=== PATIENT | male | born 1975 | race Caucasian/White ===

== ENCOUNTER → 2019-09-28 09:25 | Outpatient (CLI) | payer OTHER, SELFPAY ==
--- NOTE | ~2019-09-28 | MR_ITS ---
EXAMINATION: MR lumbar spine wo con EXAM DATE: 09/28/2019 10:03 INDICATION: Low back pain, right hip pain. TECHNIQUE: Multi-sequential, multiplanar MR images of the lumbar spine were obtained without contrast . Sagittal T1, T2, T2 fat saturation images. Axial T2 weighted images. Comparison is made to prior examination from 01/25/2016. FINDINGS: There is moderate to severe loss of the L5-S1 disc height, with only minimal endplate degen erative signal change. Prior right hemilaminectomy, discectomy at that level and 3 mm retrolisthesis. The vertebral body and disc heights are otherwise well maintained. The conus medullaris terminates at the T12-L1 level and has normal signal intensity and morphology. There are no suspicious marrow s ignal abnormalities. Paraspinal soft tissue is unremarkable. Level by level evaluation: T12-L1: Disc does not extend beyond the endplate margin. Facet arthropathy: Mild. Neural foraminal stenosis: No stenosis. Central canal stenosis: No stenosis. L1-L2: Disc does not extend beyond the endplate margin. Facet arthropathy: Mild. Neural foraminal stenosis: No stenosis. Central canal stenosis: No stenosis. L2-L3: Disc does not extend beyond the endplate margin. Facet arthropathy: Mild. Neural foraminal stenosis: No stenosis. Central canal stenosis: No stenosis. L3-L4: There is a mild diffuse disc bulge. Facet arthropathy: Mild. Neural foraminal stenosis: No stenosis. Central canal stenosis: No stenosis. L4-L5: There is a mild diffuse disc bulge. Facet arthropathy: Mild to moderate. Neural foraminal stenosis: Mild to moderate left, mild right. Central canal stenosis: Mild. L5-S1: There is a mild to moderate diffuse disc bulge asymmetric to the right with superimposed small right central extrusion narrowing lateral recess. This is causing mass effect on traversing right S1 nerve root. Facet arthropathy: Mild to moderate. Neural foraminal stenosis: Mild bilateral. Central canal stenosis: Mild to moderate, right lateral recess narrowing. Compared to prior exam L5-S1 has lost disc height, and there has been interval right hemilaminectomy and probably discectomy at that level. IMPRESSION: 1. L5-S1 small right central extrusion causing mass effect on S1 nerve root in lateral recess. Reviewed, dictated and finalized at location B. HANDISING COORDINATOR
== END ==
DX: M51.26 Other intervertebral disc displacement, lumbar region (principal)
CPT/HCPCS: 72148

== ENCOUNTER → 2022-05-12 09:12 | Outpatient (CLI) | payer OTHER, SELFPAY ==
--- NOTE | ~2022-05-12 | MR_ITS ---
EXAMINATION: MR shoulder RT wo con DATE: 05/12/2022 10:00 INDICATION: Right shoulder pain TECHNIQUE: Magnetic resonance imaging (MRI) of the right shoulder was performed without intravenous c ontrast. Sequences included axial PD-weighted FS FSE, coronal oblique PD-weighted FS FSE, coronal obl ique T2-weighted FS FSE, sagittal PD-weighted FS FSE, and sagittal T1-weighted SE. COMPARISON: None. FINDINGS: Coracoacromial arch: The acromion undersurface is curved in morphology (type II). The coracoacromial ligament is normal. M oderate acromioclavicular osteoarthritis. Rotator cuff: The supraspinatus, infraspinatus and teres minor tendons are normal. The subscapularis tendon is norm al. Normal rotator cuff muscle bulk and signal. Biceps tendon, glenoid labrum and glenohumeral cartilage: Long head of the biceps tendon is normal. There is a tear of the caudal half of the glenoid labrum wi th a. Tiny para labral cysts along the periphery of the posterior and inferior rims of the glenoid. S mall region of chondral fissuring at the superomedial aspect of the humeral head. There is linear inc reased signal along the bone chondral interface suspicious for associated delaminating tear. Small re gion of partial-thickness chondral fissuring at the anteroinferior glenoid. Fluid: Physiologic amount of fluid in the glenohumeral joint and biceps tendon sheath. There are couple tin y loose osteochondral bodies within a deep subscapular recess of the joint space. No abnormal fluid i n the subacromial/subdeltoid bursa to suggest bursitis. Bones: Bone alignment is normal. No fracture or pathologic marrow replacing process. Mild cystic change at t he greater tuberosity. IMPRESSION: 1. Mild glenohumeral osteoarthritis with tearing of the inferior half the glenoid labrum. 2. Moderate acromioclavicular osteoarthritis. Reviewed, dictated and finalized at location B. IMPRESSION: 1. Mild glenohumeral osteoarthritis with tearing of the inferior half the gleno id labrum. 2. Moderate acromioclavicular osteoarthritis.
== END ==
DX: M19.011 Primary osteoarthritis, right shoulder (principal)
CPT/HCPCS: 73221

== ENCOUNTER 2023-12-25 08:30 | Outpatient (CLI) | payer OTHER, SELFPAY ==
--- NOTE | ~2023-12-25 | MR_ITS ---
EXAMINATION: MR knee LT wo con DATE: 12/25/2023 08:57 INDICATION: Acute left knee pain. TECHNIQUE: Magnetic resonance imaging (MRI) of the left knee was performed without intravenous contra st. Sequences included axial PD-weighted FS FSE, coronal PD-weighted FSE and PD-weighted FS FSE, sagi ttal PD-weighted FSE, and sagittal T2-weighted FS FSE. COMPARISON: Left knee MRI 11/20/16 FINDINGS: Medial compartment: Again seen is a complex tear of medial meniscus. There is full-thickness cartilage loss of femoral co ndyle involving the central articular surface with intra-articular osteophytes nearly filling the car tilage gap. There is cartilage surface irregularity of tibial condyle. Marginal osteophytes are noted . Lateral compartment: Lateral meniscus is normal. The lateral compartment cartilage is normal. There are tiny marginal oste ophytes. Patellofemoral compartment: There is cartilage surface irregularity of the patellar medial and lateral facets. There is partial-t hickness cartilage loss of trochlea, deep at the central and medial trochlea. There is focal full-thi ckness cartilage loss of the central trochlea with intra-articular osteophyte. Ligaments and tendons: There is an intact anterior cruciate ligament reconstruction. Posterior cruciate ligament is normal. There are changes of prior sprains of medial collateral ligament and fibular collateral ligament edgar acterized by thickening and increased signal intensity proximally. There is a graft donor site involv ing the patellar tendon. Fluid: There is a small knee joint effusion. There is a small Conte's cyst. IMPRESSION: 1. Severe chondrosis of medial and patellofemoral compartments. 2. Complex tear of medial meniscus. 3. Intact anterior cruciate ligament reconstruction. 4. Small knee joint effusion. 5. Small Conte's cyst. Reviewed, dictated and finalized at location A.
== END 2023-12-25 08:31 ==
LOC: MICIMG 08:32
PROVIDERS: PCP Family Medicine; Visit Provider Family Medicine
DX: M94.262 Chondromalacia, left knee (principal); S83.232A Complex tear of medial meniscus, current injury, left knee, initial encounter; M25.462 Effusion, left knee; M71.22 Synovial cyst of popliteal space [Baker], left knee; Z98.890 Other specified postprocedural states; X58.XXXA Exposure to other specified factors, initial encounter
CPT/HCPCS: 73721